=== PATIENT | male | born 2000 | race Caucasian/White ===

== ENCOUNTER 2023-03-02 04:01 | Emergency (ER) | payer MEDICAID ==
[~2023-03-02] VITALS: Ht 180.3 cm; Wt 92.0 kg
[2023-03-02 04:09] VITALS: BP 138/83
[2023-03-02] MEDS ORDERED: rabies immune globulin/PF 150 unit/ml inj IMVAC ONE ×2 (04:40→04:55)
[2023-03-02] MEDS ORDERED: rabies vaccine (PCEC)/PF 2.5 unit kit IMVAC ONE (04:40)
[2023-03-02] MEDS ORDERED: TETanus/Pertussis (Acell)/Diphther VAC/PF (Tdap-Adult) 0.5ml syringe IMVAC ONE (04:40)
[2023-03-02] MEDS ORDERED: AMOX500C2 PO (04:43)
[2023-03-02] MEDS ORDERED: acetaminophen 325mg tablet PO ONE (04:45)
== END 2023-03-02 06:29 | disposition home or self-care (01) ==
LOC: ER 04:02
DX: S60.512A Abrasion of left hand, initial encounter (principal); Z20.3 Contact with and (suspected) exposure to rabies; R51.9 Headache, unspecified; Z23 Encounter for immunization; Z88.6 Allergy status to analgesic agent; Z79.899 Other long term (current) drug therapy; W53.21XA Bitten by squirrel, initial encounter; Y93.89 Activity, other specified; Y92.89 Other specified places as the place of occurrence of the external cause; Y99.8 Other external cause status
CPT/HCPCS: 90376; 90471; 90472; 90675; 90715; 96372; 99284